=== PATIENT | male | born 1980 | race Hispanic/Latino ===

== ENCOUNTER 2022-02-14 19:15 | Inpatient (IN) | payer OTHER ==
[~2022-02-14] VITALS: Ht 172.7 cm; Wt 74.8 kg
[2022-02-14 20:51] LABS: BASOPHILS # (AUTO) 0.1 (0.0-0.1); BASOPHILS % 0.4 % (0.0-1.0); EOSINOPHILS # (AUTO) 0.1 (0.0-0.4); EOSINOPHILS % 0.9 % (0.0-6.0); HEMATOCRIT 35.4 % (38.2-49.6); HEMOGLOBIN 12.3 g/dL (14.0-18.0); LYMPHOCYTES # (AUTO) 1.3 (1.0-3.2); LYMPHOCYTES % 8.7 % (18.0-39.1); MEAN CORPUSCULAR HEMOGLOBIN 32.5 pg (28-32); MEAN CORPUSCULAR HGB CONC 34.7 g/dL (31-35); MEAN CORPUSCULAR VOLUME 93.4 fL (81-99); MONOCYTES # (AUTO) 1.5 (0.2-0.8); MONOCYTES % 10.2 % (4.4-11.3); NEUTROPHILS # (AUTO) 11.5 (2.1-6.9); NEUTROPHILS % 78.9 % (38.7-80.0); PLATELET COUNT 396 x10e3/uL (140-360); RED BLOOD COUNT 3.79 x10e6/uL (4.3-5.7); RED CELL DISTRIBUTION WIDTH 11.9 % (11.7-14.4)
[2022-02-14 21:08] LABS: ALBUMIN 2.2 g/dL (3.5-5.0); ALBUMIN/GLOBULIN RATIO 0.5 (0.8-2.0); ANION GAP 16.4 mmol/L (8-16); CALCIUM 8.1 mg/dL (8.4-10.2); CREATININE, SERUM 0.81 mg/dL (0.72-1.25); POTASSIUM 4.4 mmol/L (3.5-5.1)
[2022-02-14] MEDS ORDERED: DEXTROSE 50% SYRINGE 50 ML IV PRN (21:45)
[2022-02-14] MEDS ORDERED: ACETAMINOPHEN 325 MG TAB PO PRN (21:45)
[2022-02-14] MEDS ORDERED: ONDANSETRON HCL INJ 2MG/ML 2ML 2 MG/ML VIAL IV PRN (21:45)
[2022-02-14] MEDS: Vancomycin IV 1 GM in SODIUM CHLORIDE 0.9% 250ML 250 ML IV SCH (21:50)
[2022-02-14] MEDS: Morphine 4mg Syringe 4 MG/ML INJ IV PRN (22:19)
[2022-02-15] VITALS (8 sets, daily range): BP systolic 131–161; BP diastolic 70–87
[2022-02-15] MEDS ORDERED: GLIPIZIDE-METF1 EAC2 PO (00:28)
[2022-02-15] MEDS ORDERED: LISINOPRIL2.5 MG PO (00:28)
[2022-02-15] MEDS ORDERED: CRESTOR10 MG PO (00:28)
[2022-02-15] MEDS ORDERED: TRULICITY1.5 MG/0.5 (00:28)
[2022-02-15] MEDS: Morphine 4mg Syringe 4 MG/ML INJ IV PRN ×3 (02:20→12:53)
[2022-02-15] MEDS ORDERED: SODIUM CHLORIDE 0.9% 250ML 250 ML ONE (05:41)
[2022-02-15 06:56] LABS: BASOPHILS # (AUTO) 0.1 (0.0-0.1); BASOPHILS % 0.4 % (0.0-1.0); EOSINOPHILS # (AUTO) 0.1 (0.0-0.4); HEMATOCRIT 30.9 % (38.2-49.6); HEMOGLOBIN 10.7 g/dL (14.0-18.0); LYMPHOCYTES # (AUTO) 1.3 (1.0-3.2); LYMPHOCYTES % 9.7 % (18.0-39.1); MEAN CORPUSCULAR HEMOGLOBIN 32.2 pg (28-32); MEAN CORPUSCULAR HGB CONC 34.6 g/dL (31-35); MEAN CORPUSCULAR VOLUME 93.1 fL (81-99); MONOCYTES # (AUTO) 1.6 (0.2-0.8); NEUTROPHILS # (AUTO) 10.3 (2.1-6.9); NEUTROPHILS % 76.2 % (38.7-80.0); PLATELET COUNT 352 x10e3/uL (140-360); RED BLOOD COUNT 3.32 x10e6/uL (4.3-5.7); RED CELL DISTRIBUTION WIDTH 11.7 % (11.7-14.4)
[2022-02-15 07:20] LABS: ALBUMIN 1.9 g/dL (3.5-5.0); ALBUMIN/GLOBULIN RATIO 0.5 (0.8-2.0); ANION GAP 13.8 mmol/L (8-16); CALCIUM 7.8 mg/dL (8.4-10.2); CREATININE, SERUM 0.68 mg/dL (0.72-1.25); POTASSIUM 3.8 mmol/L (3.5-5.1)
[2022-02-15] MEDS: Vancomycin IV 1 GM in SODIUM CHLORIDE 0.9% 250ML 250 ML IV SCH (09:43)
[2022-02-15 09:55] LABS: MAGNESIUM 1.9 MG/DL (1.3-2.1); PHOSPHORUS 2.8 MG/DL (2.3-4.7)
[2022-02-15] MEDS: INSULIN REGULAR, HUMAN 100 UNIT/1 ML SQ SCH ×3 (11:30→17:30)
[2022-02-15] MEDS ORDERED: GLIPIZIDE 5 MG TAB PO SCH (16:30)
== END 2022-02-15 18:32 | disposition short-term general hospital (02) | DRG 300 ==
LOC: ER 19:19 → ERHOLD 21:49 → MED/SURG3 23:36
PROVIDERS: ADMIT Internal Medicine Critical Care Medicine; ATTEND Internal Medicine Critical Care Medicine
DX: E11.52 Type 2 diabetes mellitus with diabetic peripheral angiopathy with gangrene (principal); L03.115 Cellulitis of right lower limb; I96 Gangrene, not elsewhere classified; L02.415 Cutaneous abscess of right lower limb; E87.1 Hypo-osmolality and hyponatremia; Z79.4 Long term (current) use of insulin; S70.11XD Contusion of right thigh, subsequent encounter; E88.09 Other disorders of plasma-protein metabolism, not elsewhere classified; E83.51 Hypocalcemia; E83.39 Other disorders of phosphorus metabolism; D53.9 Nutritional anemia, unspecified; Z75.1 Person awaiting admission to adequate facility elsewhere; Z88.0 Allergy status to penicillin
CPT/HCPCS: 36415; 80053; 82948; 83605; 83735; 84100; 85025; 87040; 99284; J0692; J2270; J3370; J7050; U0002

== ENCOUNTER 2024-07-30 20:11 | Inpatient (IN) | payer OTHER ==
[~2024-07-30] VITALS: Ht 172.7 cm; Wt 74.8 kg
[~2024-07-30 20:11] MED LIST: CRESTOR10 MG PO; GLIPIZIDE-METF1 EAC2 PO; LISINOPRIL2.5 MG PO; TRULICITY1.5 MG/0.5
[2024-07-30 20:51] VITALS: TEMP 98.8
[2024-07-30 21:20] LABS: BASOPHILS # (AUTO) 0.1 (0.0-0.1); BASOPHILS % 0.8 % (0.0-1.0); EOSINOPHILS # (AUTO) 0.5 (0.0-0.4); EOSINOPHILS % 2.9 % (0.0-6.0); HEMATOCRIT 40.8 % (38.2-49.6); HEMOGLOBIN 13.6 g/dL (14.0-18.0); LYMPHOCYTES # (AUTO) 2.1 (1.0-3.2); LYMPHOCYTES % 13.2 % (18.0-39.1); MEAN CORPUSCULAR HEMOGLOBIN 32.2 pg (28-32); MEAN CORPUSCULAR HGB CONC 33.3 g/dL (31-35); MEAN CORPUSCULAR VOLUME 96.5 fL (81-99); MONOCYTES # (AUTO) 0.9 (0.2-0.8); MONOCYTES % 5.6 % (4.4-11.3); NEUTROPHILS # (AUTO) 12.1 (2.1-6.9); NEUTROPHILS % 77.2 % (38.7-80.0); PLATELET COUNT 364 x10e3/uL (140-360); RED BLOOD COUNT 4.23 x10e6/uL (4.3-5.7); RED CELL DISTRIBUTION WIDTH 12.5 % (11.7-14.4)
[2024-07-30] MEDS: Vancomycin IV 1 GM in SODIUM CHLORIDE 0.9% 250ML 250 ML IV ONE (21:27)
[2024-07-30 21:37] LABS: ALBUMIN 2.4 g/dL (3.5-5.0); ALBUMIN/GLOBULIN RATIO 0.8 (0.8-2.0); ANION GAP 12.1 mmol/L (8-16); BILIRUBIN,TOTAL 0.3 mg/dL (0.2-1.2); CALCIUM 8.4 mg/dL (8.4-10.2); CREATININE, SERUM 1.66 mg/dL (0.72-1.25); POTASSIUM 4.1 mmol/L (3.5-5.1); TOTAL PROTEIN 5.6 g/dL (6.5-8.1)
[2024-07-30] MEDS: SODIUM CHLORIDE 0.9% 1000ML 1,000 ML IV ONE (21:53)
[2024-07-30] MEDS: INSULIN REGULAR, HUMAN 100 UNIT/1 ML SQ ONE (21:53)
[2024-07-30] MEDS ORDERED: ONDANSETRON HCL INJ 2MG/ML 2ML 2 MG/ML VIAL IV PRN (22:00)
[2024-07-30] MEDS ORDERED: DEXTROSE 50% SYRINGE 50 ML IV PRN (22:00)
[2024-07-30] MEDS ORDERED: Morphine 4mg INJECTION 4 MG/ML INJ IV PRN (22:00)
[2024-07-30] MEDS: SODIUM CHLORIDE 0.9% 1000ML 1,000 ML IV SCH (22:55)
[2024-07-31] VITALS (11 sets, daily range): BP systolic 129–157; BP diastolic 74–86; PULSE 74–84; RESP 16–20; TEMP 97.6–98.4; O2SAT 98–100
[2024-07-31] MEDS ORDERED: ALBUTEROL SULF 0.083% NEB SOLN 3 ML NEB NEB PRN (02:00)
[2024-07-31] MEDS ORDERED: GUAIFENESIN/DEXTROMETHORPHAN LIQD 5 ML UDC PO PRN (02:00)
[2024-07-31] MEDS ORDERED: DOCUSATE SODIUM 100 MG CAP PO PRN (02:00)
[2024-07-31] MEDS ORDERED: MAGNESIUM/ALUMINUM/SIMETHICONE 30 ML UDC PO PRN (02:00)
[2024-07-31] MEDS ORDERED: MELATONIN 3 MG TAB PO PRN (02:00)
[2024-07-31] MEDS: SODIUM CHLORIDE 0.9% 1000ML 1,000 ML IV SCH (02:05)
[2024-07-31] MEDS: ACETAMINOPHEN 325 MG TAB PO PRN (02:49)
[2024-07-31 08:09] LABS: BASOPHILS # (AUTO) 0.1 (0.0-0.1); BASOPHILS % 0.8 % (0.0-1.0); EOSINOPHILS # (AUTO) 0.4 (0.0-0.4); EOSINOPHILS % 3.7 % (0.0-6.0); HEMATOCRIT 35.4 % (38.2-49.6); HEMOGLOBIN 11.7 g/dL (14.0-18.0); LYMPHOCYTES # (AUTO) 2.3 (1.0-3.2); LYMPHOCYTES % 22.3 % (18.0-39.1); MEAN CORPUSCULAR HEMOGLOBIN 31.9 pg (28-32); MEAN CORPUSCULAR HGB CONC 33.1 g/dL (31-35); MEAN CORPUSCULAR VOLUME 96.5 fL (81-99); MONOCYTES # (AUTO) 0.7 (0.2-0.8); MONOCYTES % 6.2 % (4.4-11.3); NEUTROPHILS % 66.7 % (38.7-80.0); PLATELET COUNT 292 x10e3/uL (140-360); RED BLOOD COUNT 3.67 x10e6/uL (4.3-5.7); RED CELL DISTRIBUTION WIDTH 12.6 % (11.7-14.4); WHITE BLOOD COUNT 10.42 x10e3/uL (4.8-10.8)
[2024-07-31 08:29] LABS: ALBUMIN/GLOBULIN RATIO 0.8 (0.8-2.0); ANION GAP 10.1 mmol/L (8-16); BILIRUBIN,TOTAL 0.4 mg/dL (0.2-1.2); CALCIUM 7.7 mg/dL (8.4-10.2); CREATININE, SERUM 1.16 mg/dL (0.72-1.25); POTASSIUM 4.1 mmol/L (3.5-5.1); TOTAL PROTEIN 4.5 g/dL (6.5-8.1)
[2024-07-31] MEDS: MULTIVITAMINS/MINERALS TAB PO SCH (08:40)
[2024-07-31] MEDS: SIMVASTATIN 40 MG TAB PO SCH (08:45)
[2024-07-31] MEDS: INSULIN REGULAR, HUMAN 100 UNIT/1 ML SQ SCH (08:51)
[2024-07-31] MEDS ORDERED: Vancomycin IV 1 GM in SODIUM CHLORIDE 0.9% 250ML 250 ML IV SCH ×2 (09:00→21:00)
[2024-07-31] MEDS: Vancomycin IV 1 GM in SODIUM CHLORIDE 0.9% 250ML 250 ML IV SCH (13:17)
[2024-07-31 15:59] LABS: FREE T4 (FREE THYROXINE) 0.9 ng/dL (0.8-1.8); THYROID STIMULATING HORMONE 2.135 uIU/mL (0.350-4.940)
[2024-07-31] MEDS: INSULIN LISPRO 100 UNIT/1 ML 3ML VIAL SQ SCH ×2 (17:31→17:32)
[2024-07-31] MEDS: ENOXAPARIN SOD INJ 40 MG/0.4 ML SYR SC SCH (17:33)
[2024-07-31] MEDS: INSULIN GLARGINE 100 UNITS/ML VIAL SQ SCH (21:33)
[2024-08-01] VITALS (7 sets, daily range): BP systolic 144–171; BP diastolic 84–98; PULSE 73–83; RESP 18–20; TEMP 96.5–98; O2SAT 96–100
[2024-08-01] MEDS: Vancomycin IV 1 GM in SODIUM CHLORIDE 0.9% 250ML 250 ML IV SCH (03:34)
[2024-08-01 05:24] LABS: HEMATOCRIT 33.2 % (38.2-49.6); HEMOGLOBIN 11.2 g/dL (14.0-18.0); MEAN CORPUSCULAR HEMOGLOBIN 32.4 pg (28-32); MEAN CORPUSCULAR HGB CONC 33.7 g/dL (31-35); PLATELET COUNT 281 x10e3/uL (140-360); RED BLOOD COUNT 3.46 x10e6/uL (4.3-5.7); RED CELL DISTRIBUTION WIDTH 12.2 % (11.7-14.4); WHITE BLOOD COUNT 8.93 x10e3/uL (4.8-10.8)
[2024-08-01 05:53] LABS: ALBUMIN 1.9 g/dL (3.5-5.0); ALBUMIN/GLOBULIN RATIO 0.8 (0.8-2.0); ANION GAP 9.9 mmol/L (8-16); BILIRUBIN,TOTAL 0.2 mg/dL (0.2-1.2); CALCIUM 7.9 mg/dL (8.4-10.2); CREATININE, SERUM 1.2 mg/dL (0.72-1.25); POTASSIUM 3.9 mmol/L (3.5-5.1); TOTAL PROTEIN 4.3 g/dL (6.5-8.1)
[2024-08-01 06:35] LABS: MAGNESIUM 1.8 MG/DL (1.3-2.1); PHOSPHORUS 3.4 MG/DL (2.3-4.7)
[2024-08-01 09:33] LABS: BASOPHILS % (MANUAL) 1 % (0-1.5); EOSINOPHILS % (MANUAL) 1 % (0-7); LYMPHOCYTES % (MANUAL) 18 % (19-48); MONOCYTES % (MANUAL) 6 % (3.4-9.0); NEUTROPHILS % (MANUAL) 74 % (40-74); PLATELET ESTIMATE ADEQUATE; PLATELET MORPHOLOGY COMMENT NORMAL; RBC MORPHOLOGY COMMENT NORMAL
[2024-08-01] MEDS: HYDRALAZINE HCL 20 MG/ML VIAL IV PRN (10:13)
[2024-08-01] MEDS: LISINOPRIL 10 MG TAB PO ONE (13:48)
[2024-08-01 15:55] LABS: BASOPHILS # (AUTO) 0.1 (0.0-0.1); BASOPHILS % 0.6 % (0.0-1.0); EOSINOPHILS # (AUTO) 0.2 (0.0-0.4); EOSINOPHILS % 1.2 % (0.0-6.0); HEMATOCRIT 40.2 % (38.2-49.6); HEMOGLOBIN 13.6 g/dL (14.0-18.0); LYMPHOCYTES # (AUTO) 1.3 (1.0-3.2); LYMPHOCYTES % 9.5 % (18.0-39.1); MEAN CORPUSCULAR HEMOGLOBIN 32.4 pg (28-32); MEAN CORPUSCULAR HGB CONC 33.8 g/dL (31-35); MEAN CORPUSCULAR VOLUME 95.7 fL (81-99); MONOCYTES # (AUTO) 0.7 (0.2-0.8); MONOCYTES % 4.9 % (4.4-11.3); NEUTROPHILS # (AUTO) 11.6 (2.1-6.9); NEUTROPHILS % 83.5 % (38.7-80.0); PLATELET COUNT 343 x10e3/uL (140-360); RED CELL DISTRIBUTION WIDTH 12.2 % (11.7-14.4); WHITE BLOOD COUNT 13.91 x10e3/uL (4.8-10.8)
[2024-08-01] MEDS: INSULIN GLARGINE 100 UNITS/ML VIAL SQ SCH (22:10)
[2024-08-02 05:48] VITALS: BP 129/74; PULSE 74; RESP 18; TEMP 98.4; O2SAT 100
[2024-08-02 08:35] VITALS: BP 127/70; PULSE 75; RESP 18; TEMP 98; O2SAT 100
[2024-08-02] MEDS: LISINOPRIL 10 MG TAB PO SCH (08:35)
[2024-08-02 09:20] VITALS: BP 129/74; PULSE 75; RESP 18; TEMP 98; O2SAT 100
[2024-08-02 11:43] VITALS: BP 138/77; PULSE 76; RESP 18; TEMP 98.1; O2SAT 100
[2024-08-02] MEDS ORDERED: LISINOPRIL10 MG PO (15:35)
[2024-08-02] MEDS ORDERED: INSULIN GL100 UNIT/2 SQ (15:35)
[2024-08-02] MEDS ORDERED: HUMALOG TE100 UNIT/1 SQ (15:35)
[2024-08-02] MEDS ORDERED: SIMVASTATIN40 MG PO (15:35)
[2024-08-02 16:41] VITALS: BP 168/87; PULSE 78; RESP 18; TEMP 97.9; O2SAT 100
== END 2024-08-02 17:58 | disposition home or self-care (01) | DRG 639 ==
LOC: ER 20:15 → ERHOLD 21:48 → MED/SURG 07-31 02:11 → MED/SURG2 08-01 06:42
PROVIDERS: ADMIT Internal Medicine Critical Care Medicine; ATTEND Internal Medicine Critical Care Medicine
DX: E11.628 Type 2 diabetes mellitus with other skin complications (principal); L03.032 Cellulitis of left toe; E11.65 Type 2 diabetes mellitus with hyperglycemia; S90.422A Blister (nonthermal), left great toe, initial encounter; N17.9 Acute kidney failure, unspecified; E11.42 Type 2 diabetes mellitus with diabetic polyneuropathy; E11.51 Type 2 diabetes mellitus with diabetic peripheral angiopathy without gangrene; I70.202 Unspecified atherosclerosis of native arteries of extremities, left leg; Z79.4 Long term (current) use of insulin; Z79.84 Long term (current) use of oral hypoglycemic drugs; I10 Essential (primary) hypertension; F17.200 Nicotine dependence, unspecified, uncomplicated; B35.1 Tinea unguium; E88.09 Other disorders of plasma-protein metabolism, not elsewhere classified; Z91.148 Patient's other noncompliance with medication regimen for other reason; Z71.3 Dietary counseling and surveillance; Z68.25 Body mass index [BMI] 25.0-25.9, adult; Z86.14 Personal history of Methicillin resistant Staphylococcus aureus infection; Z79.899 Other long term (current) drug therapy; Z88.0 Allergy status to penicillin; X58.XXXA Exposure to other specified factors, initial encounter
CPT/HCPCS: 36415; 80053; 80202; 82948; 83036; 83605; 83735; 84100; 84439; 84443; 85007; 85025; 85027; 87040; 93926; 94799; 99252; 99284; J0360; J0692; J1650; J1815; J7030; J7050

== ENCOUNTER 2025-05-02 16:44 | Emergency (ER) | payer OTHER ==
[~2025-05-02] VITALS: Ht 167.6 cm; Wt 74.8 kg
[~2025-05-02 16:44] MED LIST changes: +COREG3.125 MG PO; +HUMALOG TE100 UNIT/1 SQ; +INSULIN GL100 UNIT/2 SQ; +LISINOPRIL10 MG PO; +METHOCARBAMOL500 MG PO; +ROSUVASTATIN CA10 MG PO; +SIMVASTATIN40 MG PO; +ZYVOX600 MG PO
[2025-05-02 19:21] LABS: BASOPHILS % 0.8 % (0.0-1.0); EOSINOPHILS % 3.7 % (0.0-6.0); LYMPHOCYTES % 10.3 % (18.0-39.1); MONOCYTES % 4.6 % (4.4-11.3); NEUTROPHILS % 80.1 % (38.7-80.0); RED CELL DISTRIBUTION WIDTH 12.8 % (11.7-14.4)
[2025-05-02 19:33] LABS: EST GLOMERULAR FILTRATION RATE 19.0 ML/MIN (>=60)
[2025-05-02 19:34] LABS: LEUKOCYTE ESTERASE ,URINE SMALL (NEGATIVE); PROTEIN,URINE DIPSTICK >=300 (NEGATIVE)
[2025-05-02 19:35] LABS: URINE UROBILINOGEN 0.2 mg/dL (0.2 - 1)
[2025-05-02] MEDS: HYDROCODONE/APAP 7.5MG-325MG 1 EA TAB PO STA (19:42)
[2025-05-02 19:45] LABS: YEAST,URINE MANY
[2025-05-02 20:37] VITALS: PULSE 90; RESP 17; TEMP 97.8
[2025-05-02] MEDS ORDERED: DIFLUCAN100 MG PO (21:01)
[2025-05-02] MEDS ORDERED: LEVOFLOXACIN250 MG PO (21:01)
[2025-05-02 21:13] VITALS: BP 168/87; PULSE 88; RESP 17; TEMP 98; O2SAT 98
== END 2025-05-02 21:20 | disposition home or self-care (01) ==
LOC: ER 18:07
DX: Z46.6 Encounter for fitting and adjustment of urinary device (principal); B37.49 Other urogenital candidiasis; E11.22 Type 2 diabetes mellitus with diabetic chronic kidney disease; E11.65 Type 2 diabetes mellitus with hyperglycemia
CPT/HCPCS: 36415; 80048; 81001; 85025; 87086; 87186; 99284

== ENCOUNTER 2025-05-03 19:13 | Emergency (ER) | payer OTHER ==
[~2025-05-03] VITALS: Ht 172.7 cm; Wt 77.1 kg
[~2025-05-03 19:13] MED LIST changes: +DIFLUCAN100 MG PO; +LEVOFLOXACIN250 MG PO
[2025-05-03] MEDS ORDERED: SODIUM CHLORIDE 0.9% 1000ML 1,000 ML IV ONE (19:45)
[2025-05-03 20:12] VITALS: PULSE 91; RESP 18; TEMP 98.1; O2SAT 98
[2025-05-03] MEDS: TRAMADOL HCL 50 MG TAB PO ONE (20:12)
== END 2025-05-03 20:58 | disposition home or self-care (01) ==
LOC: ER 19:18
DX: Z46.6 Encounter for fitting and adjustment of urinary device (principal); E11.22 Type 2 diabetes mellitus with diabetic chronic kidney disease
CPT/HCPCS: 51700; 99282